=== PATIENT | female | born 1975 | race Caucasian/White ===

== ENCOUNTER 2025-01-28 20:22 | Emergency (ER) | payer MEDICAID ==
[~2025-01-28] VITALS: Ht 167.6 cm; Wt 95.4 kg
[2025-01-28 20:45] VITALS: BP 154/103; PULSE 78; RESP 16; TEMP 98.3; O2SAT 94
[2025-01-28] MEDS ORDERED: ONDANSETRON ODT 4 MG TAB PO ONE (20:45)
--- NOTE | 2025-01-28 20:49 | ED.PDOC ---
GI ASSESSMENT HPI Comments HPI: Poor Historian. 49-year-old female presents to emergency department for evaluation of nausea for the last 2-3 hours. Onset of symptoms happened after she had two exerts herself running to get something and returned to the checked out register at a store. She started developing some anxiety and acid reflux like symptoms and nausea. Vitals: temperature of 98.3F, pulse of 78, respiratory rate of 16, blood pressure of 154/103, SpO2 of 94%RA Past Medical History: Arthritis, scoliosis, degenerative disc disease, follows with pain management. Past Surgical History: Denies any Gabapentin, hydrocodone, REVIEW OF SYSTEMS: CONSTITUTIONAL: Denies acute: fever, diaphoresis, chills, generalized weakness. HEAD: Denies acute: headache, photophobia Eyes: Denies acute: Double vision, vision loss, eye pain, eye discharge. EARS: Denies acute: tinnitus, hearing loss, ear discharge, ear pain, THROAT: Denies acute: sore throat, swelling, difficulty swallowing , pain with swallowing, change in voice. NECK: Denies acute: neck pain, neck swelling, stiff neck. HEART: Denies acute : chest pain, palpitations, LUNGS: Denies acute: SOB, wheezing, cough, hemoptysis ABDOMEN: Denies acute: abdominal pain, Vomiting, diarrhea, melena , hematemesis, hematochezia SKIN: Denies acute: rash, redness, lesions, itchiness. EXTREMITIES: Denies acute: calf pain, numbness, tingling, weakness, denies pain in extremity. Denies acute: Low back pain. Neuro: Denies acute: focal neurological deficit, motor or sensory focal neurological deficit, tremors, seizure like activity, confusion, dizziness, change in mental status, loss of bowel or bladder function, cauda equina like symptoms. : Denies acute: dysuria, hematuria, flank pain, increase in urinary frequency. PSYCH: Denies acute: hallucination, suicidal ideation, homicidal ideation. FEMALE: Denies acute: abnormal vaginal bleeding, foul odor, unusual discharge. PHYSICAL EXAM: General: -----no---acute distress, awake and alert. Head: normocephalic, atraumatic. Neck: supple, trachea is midline, no swelling. Throat: Normal phonation. Eyes:, no erythema, no purulent discharge, no proptosis, no icterus. Heart: regular rate, regular rhythm, no significant murmur appreciated. Lungs: no apparent respiratory distress, Able to speak in full sentences. No wheezing, no rhonchi, no crackles. No stridors Clear to auscultation bilaterally. Abdomen: non tender to palpation, non distended, soft, no guarding, no rebound, + bowel sounds. Neuro: Awake, Alert, oriented to name, self, situation, follows commands GCS=15. Speech is normal. Skin: no petechia, no purpura, no cyanosis, non-pale, not jaundice. Lower extremities: --no - Pitting edema no deformity, no focal swelling, no calf TTP. Makes eye contact. moves all four extremities. Face: no apparent facial droop. Ambulating in the ED independently. ED COURSE: Chief Complaint: Nausea/Vomiting Time Seen by MD: 20:32 Primary Care Provider: DR. ALLEN Reviewed Notes: Nurses Notes, Allergies Allergies: Coded Allergies: NO KNOWN ALLERGIES (Unverified , 10/18/10) Information Source: Patient Past Medical History PAST MEDICAL HISTORY: Denies Surgical History: Denies all surgeries Family History Family History: Unknown Social History Smoker: Cigarettes Lives In: Home Was a procedure done? Was a procedure done?: No GI differential Dx Differential Diagnosis: Gastroenteritis, UTI, Other X-Ray, Labs, Meds, VS Vital Signs Date Time Temp Pulse Resp B/P (MAP) Pulse Ox O2 Delivery O2 Flow Rate FiO2 01/28/25 20:45 98.3 78 16 154/103 (120) 94 98.3 Lab Test 01/28/25 20:57 01/28/25 20:30 Range/Units White Blood Count 7.1 4.4-10.8 10^3/uL Red Blood Count 4.28 4.0-5.20 10^6/uL Hemoglobin 13.3 12.2-16.2 g/dL Hematocrit 39.5 36.0-46.0 % Mean Corpuscular Volume 92.3 80.0-100.0 fL Mean Corpuscular Hemoglobin 31.1 28.0-32.0 pg Mean Corpuscular Hemoglobin Concent 33.7 32.0-36.0 g/dL Red Cell Distribution Width 13.4 11.8-14.3 % Platelet Count 222 140-450 10^3/uL Mean Platelet Volume 7.6 6.9-10.8 fL Neutrophils (%) (Auto) 44.9 37.0-80.0 % Lymphocytes (%) (Auto) 46.5 10.0-50.0 % Monocytes (%) (Auto) 7.0 0.0-12.0 % Eosinophils (%) (Auto) 1.0 0.0-7.0 % Basophils (%) (Auto) 0.6 0.0-2.0 % Neutrophils # (Auto) 3.2 1.6-8.6 10 ^3/uL Lymphocytes # (Auto) 3.3 0.4-5.4 10 ^3/uL Monocytes # (Auto) 0.5 0-1.3 10 ^3/uL Eosinophils # (Auto) 0.1 0-0.8 10 ^3/uL Basophils # (Auto) 0 0-0.2 10 ^3/uL Nucleated Red Blood Cells 0.0 % Sodium Level 139 136-145 mmol/L Potassium Level 4.1 3.5-5.1 mmol/L Chloride Level 104 98-107 mmol/L Carbon Dioxide Level 26 20-31 mmol/L Anion Gap 9 5-15 Blood Urea Nitrogen 13 9-23 mg/dL Creatinine 1.00 0.550-1.02 mg/dL Glomerular Filtration Rate Calc 69 >90 mL/min BUN/Creatinine Ratio 13.0 10.0-20.0 Serum Glucose 80 74-106 mg/dL Lactic Acid Level 0.5 0.4-2.0 mmol/L Calcium Level 10.2 8.7-10.4 mg/dL Total Bilirubin 0.4 0.2-1.0 mg/dL Aspartate Amino Transferase (AST) 17 13-40 U/L Alanine Aminotransferase (ALT) 18 7-40 U/L Alkaline Phosphatase 97 46-116 U/L Troponin I High Sensitivity 27 </=34 ng/L Total Protein 7.0 5.7-8.2 g/dL Albumin 4.5 3.2-4.8 g/dL Urine Color Colorless Yellow Urine Clarity Clear Clear Urine pH 6.0 5.0-9.0 Urine Specific [place] 1.010 1.001-1.035 Urine Protein Negative Negative Urine Ketones Negative Negative Urine Blood Negative Negative /uL Urine Nitrite Negative Negative Urine Bilirubin Negative Negative Urine Urobilinogen Normal Negative mg/dL Urine Leukocyte Esterase Trace Negative /uL Urine RBC 1 0 - 4 /hpf Urine Microscopic WBC < 1 0-5 /HPF Urine Squamous Epithelial Cells Few <5 /hpf Urine Bacteria None seen None Seen /hpf Urine Glucose Normal Normal mg/dL Urine Opiates Screen Pos NEGATIVE Urine Fentanyl Screen Neg NEGATIVE Urine Barbiturates Screen Neg NEGATIVE Urine Phencyclidine Screen Neg NEGATIVE Urine Amphetamines Screen Neg NEGATIVE Urine Benzodiazepines Screen Neg NEGATIVE Urine Cocaine Screen Neg NEGATIVE Urine Cannabinoids Screen Neg NEGATIVE Time of 1ST Reevaluation: 23:09 (Patient eating a sandwich in the lobby in no acute distress. No nausea or vomiting.) Reevaluation 1ST: Resolved Patient Education/Counseling: Diagnosis, Treatment Family Education/Counseling: Other Comments Patient presented with the above HPI.---nausea---workup was initiated. patient was found with the above mentioned diagnosis. the following medications were ordered: please refer to order lists of meds and tests obtained by myself Dr. Sears. Patient has been reassessed in the ED and remained in a stable condition. Pertinent incidental findings were discussed with the patient and/or family. Patient/family voices understanding and is agreeable with plan. Patient has been observed in the ED adequate length of time to insure imp rovement/stability. Escalation of care considered: Consideration of escalation to observation or admission Patient eloped prior to receiving her discharge instructions or getting repeat vital signs reassessment. The most recent vital signs in the chart are slightly diastolic hypertension asymptomatic. The nursing staff were unable to find the patient to reassess her. Patient was ADMITTED to the medicine team for further evaluation and treatment of their presentation. All the reports of any imaging studies that were ordered by myself were reviewed by myself. Departure 1 Departure Time of Disposition: 23:08 Impression: Primary Impression: Nausea Disposition: 01 HOME / SELF CARE / HOMELESS Condition: Stable Additional Instructions: Additional instructions: You MUST follow-up with your primary care/family doctor in 1 to 2 days. If you are unable to see your primary care/family doctor, please return to our emergency room for re-assessment and re-evaluation in 1 to 2 days. Return to the emergency room here in our facility or to the nearest ER [facility] if your symptoms change or worsen. CONSULTATIONS: you MUST Follow-up for consultation as soon as possible with: DrFletcher-gastroenterology and cardiology in 1-2 days. Please call for appointment. You MUST call the consultants office yourself to make an appointment. You may need to arrange that through your insurance and/or your primary/family doctor. If you are unable to see the interventional sale consultant in 1 to 2 days, you must return to our emergency room (or any other ER of your choice) for re-assessment and re- evaluation. Adequate fluid hydration. Discharged With: Self Critical Care Note Critical Care Time?: No Heart Score Heart Score: Heart Score Response (Comments) Value History Slightly Suspicious 0 EKG Normal 0 Age <45 0 Risk Factors No known risk factors 0 Troponin Normal limit 0 Total 0 I personally scribed for TIFFANY SEARS DO ([email or web address]) on 01/29/25 at 03:06. Electronically submitted by Paul Do ([email or web address]). TIFFANY SEARS DO January 28, 2025 20:49
[2025-01-28 21:09] LABS: Urine Bacteria None Seen /hpf (None Seen)
[2025-01-28 21:16] LABS: Basophils # (auto) 0 10 ^3/uL (0-0.2); Basophils % (auto) 0.6 % (0.0-2.0); Eosinophils # (auto) 0.1 10 ^3/uL (0-0.8); Hematocrit 39.5 % (36.0-46.0); Hemoglobin 13.3 g/dL (12.2-16.2); Lymphocytes # (auto) 3.3 10 ^3/uL (0.4-5.4); Lymphocytes % (auto) 46.5 % (10.0-50.0); Mean Corpuscular Hemoglobin 31.1 pg (28.0-32.0); Mean Corpuscular Hgb Conc. 33.7 g/dL (32.0-36.0); Mean Corpuscular Volume 92.3 fL (80.0-100.0); Monocytes # (auto) 0.5 10 ^3/uL (0-1.3); Neutrophils # (auto) 3.2 10 ^3/uL (1.6-8.6); Neutrophils % (auto) 44.9 % (37.0-80.0); Platelet Count (auto) 222 10^3/uL (140-450); Red Blood Cells 4.28 10^6/uL (4.0-5.20); Red Cell Distribution Width 13.4 % (11.8-14.3); White Blood Cell 7.1 10^3/uL (4.4-10.8)
[2025-01-28 21:17] LABS: Urine Blood Negative /uL (Negative); Urine Clarity Clear (Clear); Urine Color Colorless (Yellow); Urine Protein, UAD Negative (Negative); Urine Squamous Epithelial Cell FEW /hpf (<5); Urine Urobilinogen Normal (Negative); Urine WBC < 1 /HPF (0-5)
[2025-01-28 21:27] LABS: Opiate Scree,Urine Pos (NEGATIVE)
[2025-01-28 21:28] LABS: Amphetamine Screen, Urine Neg (NEGATIVE); Barbiturate Scree,Urine Neg (NEGATIVE); Benzodiazephine Screen, Urine Neg (NEGATIVE); Cannabinoid Screen, Urine Neg (NEGATIVE); Cocaine Screen, Urine Neg (NEGATIVE); Phencyclidine Screen, Urine Neg (NEGATIVE)
[2025-01-28 21:31] LABS: Alanine Aminotransferase 18 U/L (7-40); Albumin 4.5 g/dL (3.2-4.8); Alkaline Phosphatase 97 U/L (46-116); Anion Gap 9 (5-15); Aspartate Aminotransferase 17 U/L (13-40); Bilirubin, Total 0.4 mg/dL (0.2-1.0); Blood Urea Nitrogen 13 mg/dL (9-23); Calcium 10.2 mg/dL (8.7-10.4); Carbon Dioxide 26 mmol/L (20-31); Chloride 104 mmol/L (98-107); Glucose 80 mg/dL (74-106); Potassium 4.1 mmol/L (3.5-5.1); Sodium 139 mmol/L (136-145)
== END 2025-01-29 02:00 | disposition home or self-care (01) ==
LOC: ER 20:22
DX: R11.0 Nausea (principal); M19.90 Unspecified osteoarthritis, unspecified site; F17.210 Nicotine dependence, cigarettes, uncomplicated; Z79.899 Other long term (current) drug therapy
CPT/HCPCS: 36415; 80053; 80307; 81001; 83605; 84484; 85025

== ENCOUNTER 2025-04-04 15:08 | Emergency (ER) | payer MEDICAID ==
[~2025-04-04] VITALS: Ht 170.2 cm; Wt 91.0 kg
[2025-04-04] MEDS ORDERED: ACETAMINOPHEN 325 MG TAB PO ONE (15:30)
[2025-04-04 16:09] LABS: Hematocrit 40.9 % (36.0-46.0); Hemoglobin 14.0 g/dL (12.2-16.2); Mean Corpuscular Hemoglobin 31.2 pg (28.0-32.0); Mean Corpuscular Volume 91.3 fL (80.0-100.0); Nucleated Red Blood Cells % 0.2 %
[2025-04-04 16:23] LABS: Chloride 106 mmol/L (98-107); Potassium 4.0 mmol/L (3.5-5.1); Sodium 138 mmol/L (136-145)
[2025-04-04 16:24] LABS: Anion Gap 8 (5-15); Calcium 9.6 mg/dL (8.7-10.4); Carbon Dioxide 24 mmol/L (20-31)
[2025-04-04 16:29] LABS: BUN/Creatinine Ratio 15.2 (10.0-20.0); Blood Urea Nitrogen 12 mg/dL (9-23); Glucose 141 mg/dL (74-106)
[2025-04-04 16:56] LABS: Urine Protein, UAD Negative (Negative)
[2025-04-04] MEDS: LIDOCAINE 1% HCL (LOCAL ANESTH.) INJ 20ML MDV IJ ONE (17:10)
[2025-04-04] MEDS: ACETAMINOPHEN 500 MG TAB or CAP PO ONE (17:10)
[2025-04-04] MEDS: ONDANSETRON ODT 4 MG TAB PO ONE (17:10)
[2025-04-04] MEDS: cefTRIAXone SOD 1,000 MG VL IM ONE (17:11)
[2025-04-04] MEDS ORDERED: CLON0.1T PO (17:29)
[2025-04-04] MEDS ORDERED: NITR-87 PO (17:29)
--- NOTE | 2025-04-04 17:30 | ED.PDOC ---
History of Present Illness HPI Comments This patient is a pleasant but morbidly obese 49-year-old female who arrives the ED today for evaluation of blood pressure concerns. Patient denies any symptoms related to her concerns, but states that she had feels like her pulses high. Patient states she has a history of blood pressure concerns, but does not take medication for that. Patient states she has not followed up with the primary care provider for further evaluation. Blood pressure was 159/96 at arrival. Chief Complaint: High Blood Pressure Time Seen by MD: 15:09 Primary Care Provider: DR. ALLEN Reviewed Notes: Nurses Notes Allergies: Coded Allergies: NO KNOWN ALLERGIES (Unverified , 10/18/10) Information Source: Patient Mode of Arrival: Ambulatory Severity: Mild Timing: Hours Duration: Since onset Prehospital treatment: None Past Medical History PAST MEDICAL HISTORY: HTN Surgical History: Denies all surgeries Family History Family History: Unknown Social History Smoker: Cigarettes Alcohol: Denies ETOH Use Drugs: Denies Drug Use Lives In: Home Constitutional: denies: chills, diaphoresis, fatigue, fever, malaise, sweats, weakness, others EENTM: denies: blurred vision, double vision, ear bleeding, ear discharge, ear drainage, ear pain, ear ringing, eye pain, eye redness, hearing loss, mouth pain, mouth swelling, nasal discharge, nose bleeding, nose congestion, nose pain, photophobia, tearing, throat pain, throat swelling, voice changes, others Respiratory: denies: cough, hemoptysis, orthopnea, SOB at rest, shortness of breath, SOB with excertion, stridor, wheezing, others Cardiovascular: reports: palpitations; denies: chest pain, dizzy spells, diaphoresis, Dyspnea on exertion, edema, irregular heart beat, left arm pain, lightheadedness, PND, syncope, others Gastrointestinal: denies: abdomen distended, abdominal pain, blood streaked bowels, constipated, diarrhea, dysphagia, difficulty swallowing, hematemesis, melena, nausea, poor appetite, poor fluid intake, rectal bleeding, rectal pain, vomiting, others Genitourinary: denies: abnormal vagina bleeding, burning, dyspareunia, dysuria, flank pain, frequency, hematuria, incontinence, pain, , vagina discharge, urgency, others Neurological: denies: dizziness, fainting, headache, left sided numbness, left sided weakness, numbness, paresthesia, pre-existing deficit, right sided numbness, right sided weakness, seizure, speech problems, tingling, tremors, weakness, others Musculoskeletal: denies: back pain, gout, joint pain, joint swelling, muscle pain, muscle stiffness, neck pain, others Integumetry: denies: bruises, change in color, change in hair/nails, dryness, laceration, lesions, lumps, rash, wounds, others Allergic/Immunocompromised: denies: Difficulty Healing, Frequent Infections, Hives, Itching, others Hematologic/Lymphatic: denies: anemia, blood clots, easy bleeding, easy bruising, swollen glands, others Endocrine: denies: excessive hunger, excessive sweating, excessive thirst, excessive urination, flushing, intolerance to cold, intolerance to heat, unexplained weight gain, unexplained weight loss, others Psychiatric: denies: anxiety, bipolar disorder, depression, hopeless, panic disorder, schizophrenia, sleepless, suicidal, others Physical Exam General Appearance: Mild Distress (Patient was in mild distress at time of evaluation due to anxiety related to her event rather than any physiologic concerns.), Normal HEENT: Normal ENT Inspection, Pharynx Normal, TMs Normal Neck: Full Range of Motion, Non-Tender, Normal, Normal Inspection Respiratory: Chest Non-Tender, Lungs Clear, No Accessory Muscle Use, No Respiratory Distress, Normal Breath Sounds Cardiovascular: No Edema, No JVD, No Murmur, No Gallop, Normal Peripheral Pulses, Regular Rate/Rhythm Breast Exam: Deferred Gastrointestinal: No Organomegaly, Non Tender, No Pulsatile Mass, Normal Bowel Sounds, Soft Genitalia: Deferred Pelvic: Deferred Rectal: Deferred Extremities: No calf tenderness, Normal capillary refill, Normal inspection, Normal range of motion, Non-tender, No pedal edema Neurologic: Alert, No Motor Deficits, Normal Affect, Normal Mood, No Sensory Deficits Cerebellar Function: Normal Reflexes: Normal Skin: Dry, Normal Color, Warm Lymphatic: No Adenopathy Was a procedure done? Was a procedure done?: No Differential Dx Considerations may include: Hypertensive urgency, hypertension, UTI, sepsis, electrolyte abnormality, acute coronary syndrome X-Ray, Labs, Meds, VS Vital Signs Date Time Temp Pulse Resp B/P (MAP) Pulse Ox O2 Delivery O2 Flow Rate FiO2 04/04/25 17:17 97.9 67 19 140/105 (117) 98 97.9 04/04/25 17:17 67 19 98 Room Air 04/04/25 17:10 148/105 04/04/25 15:18 63 04/04/25 15:08 97.4 74 18 159/96 98 97.4 Lab Test 04/04/25 16:01 04/04/25 15:22 Range/Units White Blood Count 4.9 4.4-10.8 10^3/uL Red Blood Count 4.48 4.0-5.20 10^6/uL Hemoglobin 14.0 12.2-16.2 g/dL Hematocrit 40.9 36.0-46.0 % Mean Corpuscular Volume 91.3 80.0-100.0 fL Mean Corpuscular Hemoglobin 31.2 28.0-32.0 pg Mean Corpuscular Hemoglobin Concent 34.2 32.0-36.0 g/dL Red Cell Distribution Width 13.8 11.8-14.3 % Platelet Count 213 140-450 10^3/uL Mean Platelet Volume 7.8 6.9-10.8 fL Neutrophils (%) (Auto) 52.2 37.0-80.0 % Lymphocytes (%) (Auto) 40.3 10.0-50.0 % Monocytes (%) (Auto) 6.6 0.0-12.0 % Eosinophils (%) (Auto) 0.4 0.0-7.0 % Basophils (%) (Auto) 0.5 0.0-2.0 % Neutrophils # (Auto) 2.6 1.6-8.6 10 ^3/uL Lymphocytes # (Auto) 2.0 0.4-5.4 10 ^3/uL Monocytes # (Auto) 0.3 0-1.3 10 ^3/uL Eosinophils # (Auto) 0 0-0.8 10 ^3/uL Basophils # (Auto) 0 0-0.2 10 ^3/uL Nucleated Red Blood Cells 0.2 % D-Dimer, Quantitative 0.19 0.0-0.49 mg/L FEU Sodium Level 138 136-145 mmol/L Potassium Level 4.0 3.5-5.1 mmol/L Chloride Level 106 98-107 mmol/L Carbon Dioxide Level 24 20-31 mmol/L Anion Gap 8 5-15 Blood Urea Nitrogen 12 9-23 mg/dL Creatinine 0.79 0.550-1.02 mg/dL Glomerular Filtration Rate Calc 92 >90 mL/min BUN/Creatinine Ratio 15.2 10.0-20.0 Serum Glucose 141 H 74-106 mg/dL Calcium Level 9.6 8.7-10.4 mg/dL Troponin I High Sensitivity < 3 L </=34 ng/L B-Type Natriuretic Peptide 33.15 0-100 pg/mL Urine Color Light-yellow Yellow Urine Clarity Turbid H Clear Urine pH 6.5 5.0-9.0 Urine Specific [place] 1.017 1.001-1.035 Urine Protein Negative Negative Urine Ketones Negative Negative Urine Blood Negative Negative /uL Urine Nitrite Negative Negative Urine Bilirubin Negative Negative Urine Urobilinogen Normal Negative mg/dL Urine Leukocyte Esterase 3+ Negative /uL Urine RBC 6 0 - 4 /hpf Urine Microscopic WBC 21 H 0-5 /HPF Urine Squamous Epithelial Cells Few <5 /hpf Urine Bacteria Few H None Seen /hpf Urine Mucus Few None Seen Urine Glucose Normal Normal mg/dL Current Medications Medications (Trade) Dose Ordered Sig/Mira Route Start Time Stop Time Status Last Admin Ondansetron HCl (Zofran Po) 4 mg ONCE ONCE PO 04/04/25 15:30 04/04/25 15:31 DC 04/04/25 17:10 Acetaminophen (Tylenol Tablet Or Capsule) 1,000 mg ONCE ONCE PO 04/04/25 16:45 04/04/25 16:46 DC 04/04/25 17:10 Ceftriaxone Sodium (Rocephin) 1,000 mg ONCE ONCE IM 04/04/25 17:15 04/04/25 17:16 DC 04/04/25 17:11 Lidocaine HCl (Xylocaine 1%) 1.9 ml ONCE ONCE IJ 04/04/25 17:15 04/04/25 17:16 DC 04/04/25 17:10 Clonidine HCl (Catapres Tablet) 0.1 mg ONCE ONCE PO 04/04/25 17:15 04/04/25 17:16 DC 04/04/25 17:10 X-Ray, Labs, Meds, VS Comment All studies performed the ED were evaluated by me personally. Serum studies were unremarkable for any systemic concerns, but urinalysis confirmed a UTI. Cardiac markers were unremarkable with an EKG that reveals a sinus rhythm with a rate of 63. Atrial premature complexes noted as well as low voltage in precordial leads and borderline T-wave abnormalities. [place] interval 145 and QT interval 444. Relatively unremarkable EKG. Patient's blood pressure may be related to her urinary tract infection. Advised patient follow up with the primary care provider for discussions related to blood pressure concerns. Advised patient to acquire a blood pressure monitor and blood pressure journal. Time of 1ST Reevaluation: 17:27 Reevaluation 1ST: Improved Consultation: PCP, Cardiology Patient Education/Counseling: Diagnosis, Treatment Family Education/Counseling: Diagnosis, Treatment SEPSIS Sepsis Screen Date sepsis recognized/suspect: Apr 04, 2025 Time Sepsis recognized/suspect: 1509 Recent Procedure: No On Antibiotic Therapy: No Respiratory Rate >20: No Heart Rate >90: No Temp<36 C (96.8 F) or >38.3 C: No SBP <90 or MAP <65 mmHG: No New Acute Mental Status Change: No Is the patient on CPAP, BIPAP,: No Physician Orders Electrocardigram (04/04/25 15:16) Vital Signs Date Time Temp Pulse Resp B/P (MAP) Pulse Ox O2 Delivery O2 Flow Rate FiO2 04/04/25 17:17 97.9 67 19 140/105 (117) 98 97.9 04/04/25 17:17 67 19 98 Room Air 04/04/25 17:10 148/105 04/04/25 15:18 63 04/04/25 15:08 97.4 74 18 159/96 98 97.4 Laboratory Tests Test 04/04/25 16:01 White Blood Count 4.9 10^3/uL (4.4-10.8) Medications Medications Dose Ordered Sig/Mira Route Start Time Stop Time Status Last Admin Dose Admin Acetaminophen 1,000 mg ONCE ONCE PO 04/04/25 16:45 04/04/25 16:46 DC 04/04/25 17:10 Ceftriaxone Sodium 1,000 mg ONCE ONCE IM 04/04/25 17:15 04/04/25 17:16 DC 04/04/25 17:11 Clonidine HCl 0.1 mg ONCE ONCE PO 04/04/25 17:15 04/04/25 17:16 DC 04/04/25 17:10 Lidocaine HCl 1.9 ml ONCE ONCE IJ 04/04/25 17:15 04/04/25 17:16 DC 04/04/25 17:10 Ondansetron HCl 4 mg ONCE ONCE PO 04/04/25 15:30 04/04/25 15:31 DC 04/04/25 17:10 Departure 1 Departure Time of Disposition: 17:27 Impression: Primary Impression: Urinary tract infection Additional Impression: Elevated blood pressure reading Disposition: HOME / SELF CARE / HOMELESS Condition: Stable Additional Instructions: Advised patient utilize antibiotics as directed until completion as well as additional medication on an as-needed basis. Patient should acquire a blood pressure monitor and blood pressure journal and due to readings a day for 30 days and discussed results with her primary care provider. e-Prescriptions Clonidine Hydrochloride (Clonidine Hcl) 0.1 Mg Tab 1 TAB PO Q12HP PRN, #10 TAB 0 Refills To be used if systolic pressure is above 160 or diastolic pressure is above 90. Prov: HUNTER GRAMAJO PAC 04/04/25 Nitrofurantoin Monohydrate Mac (Macrobid) 100 Mg Cap 100 MG PO BID for 7 Days, #14 CAP Prov: HUNTER GRAMAJO PAC 04/04/25 Discharged With: Self, Relative Critical Care Note Critical Care Time?: No Stability Stability form required: No Heart Score Heart Score: Heart Score Response (Comments) Value History Slightly Suspicious 0 EKG Repolarization Disturb 1 Age 45-64 1 Risk Factors 1 or 2 risk factors 1 Troponin Normal limit 0 Total 3 HUNTER GRAMAJO PAC Apr 04, 2025 17:30
[2025-04-04 18:34] VITALS: BP 132/91; PULSE 65; RESP 18; TEMP 98; O2SAT 99
--- NOTE | 2025-04-08 08:54 | ECG ---
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
== END 2025-04-04 18:35 | disposition home or self-care (01) ==
LOC: ER 15:08
DX: N39.0 Urinary tract infection, site not specified (principal); I10 Essential (primary) hypertension; F17.210 Nicotine dependence, cigarettes, uncomplicated; R06.02 Shortness of breath
CPT/HCPCS: 36415; 80048; 81001; 83880; 84484; 85025; 85379; 93005; 96372; 99284; J0696; J2003; Q0162